=== PATIENT | female | born 1950 | race Caucasian/White ===

== ENCOUNTER 2017-11-19 19:15 | Inpatient (IN) | payer BC, OTHER ==
[2017-11-19] MEDS ORDERED: SODIUM CHLORIDE 1,000 ML IV SCH (19:30)
--- NOTE | 2017-11-19 19:42 | PDOC ---
Attending Attestation - Resident Resident Name: Manuel Moya - ED Attending Attestation I have performed the following: I have examined & evaluated the patient, The case was reviewed & discussed with the resident, I agree w/resident's findings & plan, Exceptions are as noted - Physicial Exam PE: 11/19/17 20:41 Vitals: Triage Vital signs reviewed General Appearance: Agonal respirations minimally responsive Head: Atraumatic, Neck: Supple;No Nucal rigidity Chest Wall: Nontender Cardiac: Regular rate and rhythym, no murmurs, no rubs, no gallops, Lungs: Clear to auscultation bilateral, crackles at bases Abdomen: Soft, non distended, normal bowel sounds, non tender to palpation Extremities: Full range of motion to all extremities, no cyanosis, clubbing, or edema Skin: Cool to touch Neuro: Not moving extremities - Critical Care Time Total Critical Care Time: 30 Critical Care Statement: The care of this patient involved high complexity decision making to prevent further life threatening deterioration of the patient 's condition and/or to evaluate & treat vital organ system(s) failure or risk of failure. - Medical Decision Making 11/19/17 19:41 67 years old no known past medical history presented to the emergency department agonal respirations dilated pupils not following commands not responding to pain in upper and lower extremities. Patient placed on nonrebreather sent to CAT scan for stat head CT Reevaluation status post being on nonrebreather patient moving arm his legs no obvious gross hemorrhage on CT had final report pending Bipap ordered ABG ordered blood cultures ordered IV fluids ordered. 11/19/17 20:41 <Amos Segura - Last Filed: 11/19/17 20:40> - HPI HPI: 11/19/17 20:47 Patient is a 67 year old female with no significant past medical history who was brought by EMS to the ED with complaints of general weakness. As per EMS patient was responsive and ambulatory on site,stating that she had no trouble breathing, but was feeling increasingly weak. EMS reports patient was able to walk on site, and states she was able to climb onto stretcher. PRASHANT reports they were not able to oxygen levels over 79 with the respiratory mask on, stated he thought his equipment was malfunctioning. As per patient's daughter, patient experienced 1 episode of bloody black tar like diarrhea this afternoon. As per EMS, patient has been experiencing upper respiratory infection since wednesday and has been on Azithromycin. Denies chest pain, SOB. Denies nausea, vomiting. Denies fevers, chills. Denies contact with sick individuals, out of state travel. Denies any other symptoms. Allergies: None Social history: Lives at home with . No smoking. No alcohol. No illicit drugs. Surgical history: None PMD: Not on staff - Medical Decision Making 11/19/17 20:47 Documentation prepared by Antonio Meneses, acting as regional medical director for Marleny Payne MD/DO. <Antonio Meneses - Last Filed: 11/19/17 20:47> - Resident Resident Name: Manuel Moya - ED Attending Attestation I have performed the following: I have examined & evaluated the patient, The case was reviewed & discussed with the resident, I agree w/resident's findings & plan - HPI HPI: 11/19/17 22:57 Pt comes with multiple complaints. SOB, hypoxia, melena, weakness, AMS. Head CT normal. CXR demonstrates effusions. Pt is afebrile. Guaiac positive - Physicial Exam PE: 11/20/17 03:15 Agree with resident exam. Pt is vastly more alert now that she is on BiPAP. Pt has fatigue, but she states that she has no specific body pains. - Medical Decision Making 11/20/17 03:19 Pt's labs drawn multiple times. Lab unable to run tubes, and get results, as she has thick blood. Hospitalist refusing to take the patient, as only ABG results and guaiac returned. Serial ABGs demonstrated imrpovement. Respiratory techs at bedside regularly, checking patient and tweaking her BiPAP settings. ICU PROCESS ASSISTANT accepted the patient. Finally once leukemia results retuned on CBC smear, and initial partial chem returned, pt was accepted by the hospitalist team. Pt vastly improved when she was leaving the ER; Alert and awake and speaking to us through her BiPAP mask. Stable for admission and transfer to ICU <Marleny Payne - Last Filed: 11/20/17 03:23>
--- NOTE | 2017-11-19 19:56 | PDOC ---
History of Present Illness <Marleny Payne - Last Filed: 11/20/17 00:58> - History of Present Illness Initial Comments: 11/19/17 20:27 Ms. Hernandez is a 67 yo female w/ no pmh who presents via EMS as she was unresponsive at home. Per family she has had productive cough since . She had initially seen her PCP and received an Augmentin Rx on 11/09/17 after she began coughing up blood but discontinued it and began Erythromycin when she started having black spots on her arms. She finished her Erythromycin Rx today. Per family she has become increasingly lethargic and today had an episode of bloody, black/sticky diarrhea. Per EMS she was responsive when they arrived but quickly became unresponsive and was barely reacting on arrival to ED. Allergies:NKDA <Manuel Moya - Last Filed: 11/20/17 06:46> - General Stated Complaint: WEAKNESS Time Seen by Provider: 11/19/17 19:26 Past History <Marleny Payne - Last Filed: 11/20/17 00:58> <Manuel Moya - Last Filed: 11/20/17 06:46> - Past Medical History Allergies/Adverse Reactions: Allergies Allergy/AdvReac Type Severity Reaction Status Date / Time No Known Allergies Allergy Verified 11/19/17 20:31 Review of Systems - Review of Systems Comments:: 11/19/17 20:31 Unable to obtain <Maneul Moya - Last Filed: 11/20/17 06:46> *Physical Exam - Vital Signs Last Vital Signs Temp Pulse Resp BP Pulse Ox 99.3 F 112 H 28 H 96/70 100 11/19/17 19:15 11/19/17 19:15 11/19/17 19:15 11/19/17 19:15 11/20/17 00:11 <Marleny Payne - Last Filed: 11/20/17 00:58> - Physical Exam Comments: 11/19/17 23:08 GENERAL: +Patient minimally responsive to voice at presentation. Semi- purposeful movements appreciated. HEAD: No signs of trauma, normocephalic, atraumatic EYES: +Pupils minimally responsive. Sclera anicteric, conjunctiva clear ENT: Auricles normal inspection, nares patent, oropharynx clear without exudates. Moist mucosa NECK: Supple, no lymphadenopathy, JVD, or masses LUNGS: +Unable to properly assess due to patient cooperation HEART: Regular rate and rhythm, normal S1 and S2, no murmurs, rubs or gallops, peripheral pulses normal and equal bilaterally. ABDOMEN: Soft, nontender, normoactive bowel sounds. No guarding, no rebound. No masses EXTREMITIES: Normal inspection, Normal range of motion, no edema. No clubbing or cyanosis. NEUROLOGICAL: Cranial nerves II through XII grossly intact. Normal speech, normal gait, no focal sensorimotor deficits SKIN: +Patient skin appears mottled. Patient cold to the touch. <Manuel Moya - Last Filed: 11/20/17 06:46> ED Treatment Course - LABORATORY CBC & Chemistry Diagram: 11/19/17 20:37 11/20/17 00:26 - ADDITIONAL ORDERS Additional order review: Laboratory Results 11/20/17 11/19/17 11/19/17 00:26 23:00 22:42 PT with INR INR Puncture Site Right brachial ABG pH 7.34 L D ABG pCO2 at Pt Temp 22.7 L ABG pO2 at Pt Temp 252.0 H* ABG HCO3 12.0 L* ABG O2 Sat (Measured) 99.6 H* ABG O2 Content 9.6 L* ABG Base Excess -12.5 L* Jese Test Positive VBG pH POC VBG pCO2 POC VBG pO2 Mixed VBG HCO3 Carboxyhemoglobin Methemoglobin O2 Delivery Device Bipap Oxygen Flow Rate 100% Vent Mode S/t Vent Rate 14 Pressure Support Vent 14/61 Sodium 126 L Potassium 5.0 Chloride 100 Carbon Dioxide Anion Gap BUN Creatinine Creat Clearance w eGFR Random Glucose Lactic Acid Calcium Total Bilirubin 0.9 AST 180 H ALT Alkaline Phosphatase 32 L Creatine Kinase 166 Creatine Kinase Index 4.7 CK-MB (CK-2) 7.923 H Troponin I 1.49 H* B-Natriuretic Peptide Total Protein Albumin Triglycerides Cholesterol Total LDL Cholesterol HDL Cholesterol Urine Color Urine Appearance Urine pH Ur Specific [place] Urine Protein Urine Glucose (UA) Urine Ketones Urine Blood Urine Nitrite Urine Bilirubin Urine Urobilinogen Ur Leukocyte Esterase Urine WBC (Auto) Urine RBC (Auto) Ur Epithelial Cells Urine Bacteria Stool Occult Blood Blood Type Antibody Screen Prewarmed Antibody Srcn Antibody Identification Antigen Identification 11/19/17 11/19/17 11/19/17 22:00 21:18 20:40 PT with INR INR Puncture Site Right radial ABG pH 7.18 L* D ABG pCO2 at Pt Temp 23.3 L D ABG pO2 at Pt Temp 230.0 H* ABG HCO3 8.4 L* ABG O2 Sat (Measured) 99.3 H ABG O2 Content 10.0 L ABG Base Excess -18.4 L* Jese Test Positive VBG pH POC VBG pCO2 POC VBG pO2 Mixed VBG HCO3 Carboxyhemoglobin 0.9 Methemoglobin 1.1 O2 Delivery Device Bipap Oxygen Flow Rate 100% Vent Mode S/t Vent Rate 14 Pressure Support Vent 14/6 Sodium Potassium Chloride Carbon Dioxide Anion Gap BUN Creatinine Creat Clearance w eGFR Random Glucose Lactic Acid Calcium Total Bilirubin AST ALT Alkaline Phosphatase Creatine Kinase Creatine Kinase Index CK-MB (CK-2) Troponin I B-Natriuretic Peptide Total Protein Albumin Triglycerides Cholesterol Total LDL Cholesterol HDL Cholesterol Urine Color Yellow Urine Appearance Clear Urine pH 5.5 Ur Specific [place] 1.025 Urine Protein 1+ H Urine Glucose (UA) Negative Urine Ketones Negative Urine Blood 1+ H Urine Nitrite Negative Urine Bilirubin 1+ H Urine Urobilinogen 1.0 Ur Leukocyte Esterase Negative Urine WBC (Auto) 1 Urine RBC (Auto) 6 Ur Epithelial Cells Rare Urine Bacteria Rare Stool Occult Blood Blood Type Cancelled Antibody Screen Prewarmed Antibody Srcn Antibody Identification Antigen Identification 11/19/17 11/19/17 11/19/17 20:37 20:37 20:08 PT with INR INR Puncture Site ABG pH ABG pCO2 at Pt Temp ABG pO2 at Pt Temp ABG HCO3 ABG O2 Sat (Measured) ABG O2 Content ABG Base Excess Jese Test VBG pH 6.80 L* POC VBG pCO2 53.5 H POC VBG pO2 54.0 H Mixed VBG HCO3 8.4 L* Carboxyhemoglobin Methemoglobin O2 Delivery Device Oxygen Flow Rate Vent Mode Vent Rate Pressure Support Vent Sodium Cancelled Potassium Cancelled Chloride Cancelled Carbon Dioxide Cancelled Anion Gap Cancelled BUN Cancelled Creatinine Cancelled Creat Clearance w eGFR Cancelled Random Glucose Cancelled Lactic Acid Calcium Cancelled Total Bilirubin Cancelled AST Cancelled ALT Cancelled Alkaline Phosphatase Cancelled Creatine Kinase Cancelled Creatine Kinase Index CK-MB (CK-2) Troponin I Cancelled B-Natriuretic Peptide Total Protein Cancelled Albumin Cancelled Triglycerides Cholesterol Total LDL Cholesterol HDL Cholesterol Urine Color Urine Appearance Urine pH Ur Specific [place] Urine Protein Urine Glucose (UA) Urine Ketones Urine Blood Urine Nitrite Urine Bilirubin Urine Urobilinogen Ur Leukocyte Esterase Urine WBC (Auto) Urine RBC (Auto) Ur Epithelial Cells Urine Bacteria Stool Occult Blood Positive Blood Type Antibody Screen Prewarmed Antibody Srcn Antibody Identification Antigen Identification 11/19/17 11/19/17 11/19/17 19:47 19:47 19:47 PT with INR INR Puncture Site ABG pH ABG pCO2 at Pt Temp ABG pO2 at Pt Temp ABG HCO3 ABG O2 Sat (Measured) ABG O2 Content ABG Base Excess Jese Test VBG pH POC VBG pCO2 POC VBG pO2 Mixed VBG HCO3 Carboxyhemoglobin Methemoglobin O2 Delivery Device Oxygen Flow Rate Vent Mode Vent Rate Pressure Support Vent Sodium Potassium Chloride Carbon Dioxide Anion Gap BUN Creatinine Creat Clearance w eGFR Random Glucose Lactic Acid Cancelled Calcium Total Bilirubin AST ALT Alkaline Phosphatase Creatine Kinase Creatine Kinase Index CK-MB (CK-2) Troponin I Cancelled B-Natriuretic Peptide Cancelled Total Protein Albumin Triglycerides Cholesterol Total LDL Cholesterol HDL Cholesterol Urine Color Urine Appearance Urine pH Ur Specific [place] Urine Protein Urine Glucose (UA) Urine Ketones Urine Blood Urine Nitrite Urine Bilirubin Urine Urobilinogen Ur Leukocyte Esterase Urine WBC (Auto) Urine RBC (Auto) Ur Epithelial Cells Urine Bacteria Stool Occult Blood Blood Type Antibody Screen Prewarmed Antibody Srcn Antibody Identification Antigen Identification 11/19/17 11/19/17 11/19/17 19:47 19:47 19:47 PT with INR Cancelled INR Cancelled Puncture Site ABG pH ABG pCO2 at Pt Temp ABG pO2 at Pt Temp ABG HCO3 ABG O2 Sat (Measured) ABG O2 Content ABG Base Excess Jese Test VBG pH POC VBG pCO2 POC VBG pO2 Mixed VBG HCO3 Carboxyhemoglobin Methemoglobin O2 Delivery Device Oxygen Flow Rate Vent Mode Vent Rate Pressure Support Vent Sodium Cancelled Potassium Cancelled Chloride Cancelled Carbon Dioxide Cancelled Anion Gap Cancelled BUN Cancelled Creatinine Cancelled Creat Clearance w eGFR Cancelled Random Glucose Cancelled Lactic Acid Calcium Cancelled Total Bilirubin Cancelled AST Cancelled ALT Cancelled Alkaline Phosphatase Cancelled Creatine Kinase Cancelled Creatine Kinase Index CK-MB (CK-2) Troponin I Cancelled B-Natriuretic Peptide Total Protein Cancelled Albumin Cancelled Triglycerides Cancelled Cholesterol Cancelled Total LDL Cholesterol Cancelled HDL Cholesterol Cancelled Urine Color Urine Appearance Urine pH Ur Specific [place] Urine Protein Urine Glucose (UA) Urine Ketones Urine Blood Urine Nitrite Urine Bilirubin Urine Urobilinogen Ur Leukocyte Esterase Urine WBC (Auto) Urine RBC (Auto) Ur Epithelial Cells Urine Bacteria Stool Occult Blood Blood Type A POSITIVE Antibody Screen Positive H Prewarmed Antibody Srcn Negative Antibody Identification Caiha Antigen Identification No Result Required. 11/19/17 19:37 PT with INR INR Puncture Site Left radial ABG pH 7.01 L* ABG pCO2 at Pt Temp 31.6 L ABG pO2 at Pt Temp 119.0 H ABG HCO3 7.7 L* ABG O2 Sat (Measured) 96.1 ABG O2 Content 9.3 L* ABG Base Excess -21.5 L* Jese Test Positive VBG pH POC VBG pCO2 POC VBG pO2 Mixed VBG HCO3 Carboxyhemoglobin 0.7 Methemoglobin 0.5 O2 Delivery Device Nrm Oxygen Flow Rate 100% Vent Mode Vent Rate Pressure Support Vent Sodium Potassium Chloride Carbon Dioxide Anion Gap BUN Creatinine Creat Clearance w eGFR Random Glucose Lactic Acid Calcium Total Bilirubin AST ALT Alkaline Phosphatase Creatine Kinase Creatine Kinase Index CK-MB (CK-2) Troponin I B-Natriuretic Peptide Total Protein Albumin Triglycerides Cholesterol Total LDL Cholesterol HDL Cholesterol Urine Color Urine Appearance Urine pH Ur Specific [place] Urine Protein Urine Glucose (UA) Urine Ketones Urine Blood Urine Nitrite Urine Bilirubin Urine Urobilinogen Ur Leukocyte Esterase Urine WBC (Auto) Urine RBC (Auto) Ur Epithelial Cells Urine Bacteria Stool Occult Blood Blood Type Antibody Screen Prewarmed Antibody Srcn Antibody Identification Antigen Identification 11/19/17 11/19/17 20:37 19:47 RBC 2.25 L Cancelled MCV 92.6 Cancelled MCHC 30.3 L Cancelled RDW 23.9 H Cancelled MPV 7.5 Cancelled Neutrophils % Cancelled Lymphocytes % Cancelled Monocytes % Cancelled Eosinophils % Cancelled Basophils % Cancelled - Medications Given in the ED: ED Medications Discontinued Medications Generic Name Dose Route Start Last Admin Trade Name Freq PRN Reason Stop Dose Admin Piperacillin Sod/Tazobactam Sod 3.375 gm 11/19/17 20:15 11/19/17 20:16 Zosyn 3.375gm Ivpb (Pre-Docked) IVPB 11/19/17 20:16 3.375 gm ONCE ONE Administration Protocol <Marleny Payne - Last Filed: 11/20/17 00:58> - LABORATORY CBC & Chemistry Diagram: 11/20/17 03:25 11/20/17 03:25 <Manuel Moya - Last Filed: 11/20/17 06:46> Medical Decision Making - Critical Care Time Total Critical Care Time (minutes): 60 Critical Care Statement: The care of this patient involved high complexity decision making to prevent further life threatening deterioration of the patient 's condition and/or to evaluate & treat vital organ system(s) failure or risk of failure. - Medical Decision Making 11/19/17 23:10 Ms. Hernandez is a 67 yo female w/ no pmh who presents w/ symptoms concerning for sepsis vs. hypoxemia vs. acute intracranial event. Initial SpO2 was 74%. Head CT ordered as patient's pupils minimally responsive however no acute bleed noted. Patient became more responsive when placed on high-flow O2. Sepsis workup started. Patient's oxygen saturation initially improved to 80's on non- rebreather. Patient noted to have pneumonia per CXR. Patient given fluids and Zosyn. Patient placed on bipap and oxygenation increased to 100%. Patient able to converse and respond to commands while on bipap. 11/20/17 01:01 Hospital lab unable to process values for various tests after multiple re- draws. 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 Hematology paged several times for further evaluation. 11/20/17 01:30 Patient admitted to ICU for further care. <Manuel Moya - Last Filed: 11/20/17 06:46> *DC/Admit/Observation/Transfer <Marleny Payne - Last Filed: 11/20/17 00:58> - Discharge Dispostion Admit: Yes <Manuel Moya - Last Filed: 11/20/17 06:46> Diagnosis at time of Disposition: Rectal bleed, History of melena, Elevated troponin Leukemia Qualifiers: Leukemia type: unspecified Leukemia Active/Remission status: without remission Qualified Code(s): C95.90 - Leukemia, unspecified not having achieved remission Anemia Qualifiers: Anemia type: unspecified type Qualified Code(s): D64.9 - Anemia, unspecified Respiratory failure Qualifiers: Chronicity: unspecified Respiratory failure complication: unspecified whether with hypoxia or hypercapnia Qualified Code(s): J96.90 - Respiratory failure, unspecified, unspecified whether with hypoxia or hypercapnia - Discharge Dispostion Condition at time of disposition: Poor
[2017-11-19 20:03] LABS: ARTERIAL BLD GAS O2 SATURATION 96.1 % (90-98.9); ARTERIAL BLOOD GAS PCO2 31.6 mmHg (35-45); CARBOXYHEMOGLOBIN 0.7 gm% (0.5-2.0)
[2017-11-19 20:06] LABS: ALLENS TEST POSITIVE
[2017-11-19 20:13] LABS: ARTERIAL BLOOD GAS BASE EXCESS -21.5 meq/l (-2-2); ARTERIAL BLOOD GAS pH 7.01 (7.35-7.45)
[2017-11-19] MEDS ORDERED: PIPERACILLIN/TAZOB 3.375 GM/50 ML PRE-DOCKED IVPB ONE (20:15)
[2017-11-19 20:55] LABS: ARTERIAL BLD GAS O2 SATURATION 99.3 % (90-98.9); ARTERIAL BLOOD GAS PCO2 23.3 mmHg (35-45); ARTERIAL BLOOD GAS pH 7.18 (7.35-7.45); CARBOXYHEMOGLOBIN 0.9 gm% (0.5-2.0)
[2017-11-19 21:16] LABS: ALLENS TEST POSITIVE
[2017-11-19 21:35] LABS: VENOUS PC02 53.5 mmHg (38-52)
[2017-11-19 21:40] LABS: VENOUS PH 6.8 (7.32-7.42)
[2017-11-19 21:42] LABS: ARTERIAL BLOOD GAS BASE EXCESS -18.4 meq/l (-2-2)
[2017-11-19 22:42] LABS: PH,URINE 5.5 (5.0-8.0); URINE APPEARANCE CLEAR; URINE BILIRUBIN 1+ (NEGATIVE); URINE BLOOD 1+ (NEGATIVE); URINE COLOR YELLOW; URINE GLUCOSE (UA) NEGATIVE (NEGATIVE); URINE KETONE NEGATIVE (NEGATIVE); URINE LEUK ESTERASE NEGATIVE (NEGATIVE); URINE NITRITE NEGATIVE (NEGATIVE)
[2017-11-19 22:55] LABS: ARTERIAL BLD GAS O2 SATURATION 99.6 % (90-98.9); ARTERIAL BLOOD GAS PCO2 22.7 mmHg (35-45); ARTERIAL BLOOD GAS pH 7.34 (7.35-7.45)
[2017-11-19 23:05] LABS: URINE PROTEIN 1+ (NEGATIVE)
[2017-11-19 23:44] LABS: ALLENS TEST POSITIVE
[2017-11-19 23:58] LABS: ARTERIAL BLOOD GAS BASE EXCESS -12.5 meq/l (-2-2)
[2017-11-20 00:07] LABS: RBC 2.25 M/mm3 (3.60-5.2)
[2017-11-20 00:08] LABS: HEMATOCRIT 20.8 % (32.4-45.2); MCH 28.1 pg (25.7-33.7); MCHC 30.3 g/dl (32.0-36.0); MEAN CELL VOLUME 92.6 fl (80-96); MEAN PLT VOLUME 7.5 fl (7.5-11.1); PLATELET COUNT 63 K/MM3 (134-434); RDW 23.9 % (11.6-15.6)
[2017-11-20 00:09] LABS: HEMOGLOBIN 6.3 GM/dL (10.7-15.3); WHITE BLOOD COUNT 48.9 K/mm3 (4.0-10.0)
[2017-11-20 00:22] LABS: EPI CELLS RARE /HPF (FEW); URINE BACTERIA RARE /hpf (NONE SEEN)
--- NOTE | 2017-11-20 00:25 | PDOC ---
*Physical Exam - Vital Signs Last Vital Signs Temp Pulse Resp BP Pulse Ox 99.3 F 112 H 28 H 96/70 100 11/19/17 19:15 11/19/17 19:15 11/19/17 19:15 11/19/17 19:15 11/20/17 00:11 ED Treatment Course - LABORATORY CBC & Chemistry Diagram: 11/19/17 20:37 11/20/17 00:26 - ADDITIONAL ORDERS Additional order review: Laboratory Results 11/19/17 11/19/17 11/19/17 22:42 22:00 21:18 PT with INR INR Puncture Site Right brachial ABG pH 7.34 L D ABG pCO2 at Pt Temp 22.7 L ABG pO2 at Pt Temp 252.0 H* ABG HCO3 12.0 L* ABG O2 Sat (Measured) 99.6 H* ABG O2 Content 9.6 L* ABG Base Excess -12.5 L* Jese Test Positive VBG pH POC VBG pCO2 POC VBG pO2 Mixed VBG HCO3 Carboxyhemoglobin Methemoglobin O2 Delivery Device Bipap Oxygen Flow Rate 100% Vent Mode S/t Vent Rate 14 Pressure Support Vent 14/61 Sodium Potassium Chloride Carbon Dioxide Anion Gap BUN Creatinine Creat Clearance w eGFR Random Glucose Lactic Acid Calcium Total Bilirubin AST ALT Alkaline Phosphatase Creatine Kinase Troponin I B-Natriuretic Peptide Total Protein Albumin Triglycerides Cholesterol Total LDL Cholesterol HDL Cholesterol Urine Color Yellow Urine Appearance Clear Urine pH 5.5 Ur Specific [place] 1.025 Urine Protein 1+ H Urine Glucose (UA) Negative Urine Ketones Negative Urine Blood 1+ H Urine Nitrite Negative Urine Bilirubin 1+ H Urine Urobilinogen 1.0 Ur Leukocyte Esterase Negative Stool Occult Blood Blood Type Cancelled Antibody Screen Prewarmed Antibody Srcn Antibody Identification Antigen Identification 11/19/17 11/19/17 11/19/17 20:40 20:37 20:37 PT with INR INR Puncture Site Right radial ABG pH 7.18 L* D ABG pCO2 at Pt Temp 23.3 L D ABG pO2 at Pt Temp 230.0 H* ABG HCO3 8.4 L* ABG O2 Sat (Measured) 99.3 H ABG O2 Content 10.0 L ABG Base Excess -18.4 L* Jese Test Positive VBG pH 6.80 L* POC VBG pCO2 53.5 H POC VBG pO2 54.0 H Mixed VBG HCO3 8.4 L* Carboxyhemoglobin 0.9 Methemoglobin 1.1 O2 Delivery Device Bipap Oxygen Flow Rate 100% Vent Mode S/t Vent Rate 14 Pressure Support Vent 14/6 Sodium Cancelled Potassium Cancelled Chloride Cancelled Carbon Dioxide Cancelled Anion Gap Cancelled BUN Cancelled Creatinine Cancelled Creat Clearance w eGFR Cancelled Random Glucose Cancelled Lactic Acid Calcium Cancelled Total Bilirubin Cancelled AST Cancelled ALT Cancelled Alkaline Phosphatase Cancelled Creatine Kinase Cancelled Troponin I Cancelled B-Natriuretic Peptide Total Protein Cancelled Albumin Cancelled Triglycerides Cholesterol Total LDL Cholesterol HDL Cholesterol Urine Color Urine Appearance Urine pH Ur Specific [place] Urine Protein Urine Glucose (UA) Urine Ketones Urine Blood Urine Nitrite Urine Bilirubin Urine Urobilinogen Ur Leukocyte Esterase Stool Occult Blood Blood Type Antibody Screen Prewarmed Antibody Srcn Antibody Identification Antigen Identification 11/19/17 11/19/17 11/19/17 20:08 19:47 19:47 PT with INR INR Puncture Site ABG pH ABG pCO2 at Pt Temp ABG pO2 at Pt Temp ABG HCO3 ABG O2 Sat (Measured) ABG O2 Content ABG Base Excess Jese Test VBG pH POC VBG pCO2 POC VBG pO2 Mixed VBG HCO3 Carboxyhemoglobin Methemoglobin O2 Delivery Device Oxygen Flow Rate Vent Mode Vent Rate Pressure Support Vent Sodium Potassium Chloride Carbon Dioxide Anion Gap BUN Creatinine Creat Clearance w eGFR Random Glucose Lactic Acid Cancelled Calcium Total Bilirubin AST ALT Alkaline Phosphatase Creatine Kinase Troponin I B-Natriuretic Peptide Cancelled Total Protein Albumin Triglycerides Cholesterol Total LDL Cholesterol HDL Cholesterol Urine Color Urine Appearance Urine pH Ur Specific [place] Urine Protein Urine Glucose (UA) Urine Ketones Urine Blood Urine Nitrite Urine Bilirubin Urine Urobilinogen Ur Leukocyte Esterase Stool Occult Blood Positive Blood Type Antibody Screen Prewarmed Antibody Srcn Antibody Identification Antigen Identification 11/19/17 11/19/17 11/19/17 19:47 19:47 19:47 PT with INR INR Puncture Site ABG pH ABG pCO2 at Pt Temp ABG pO2 at Pt Temp ABG HCO3 ABG O2 Sat (Measured) ABG O2 Content ABG Base Excess Jese Test VBG pH POC VBG pCO2 POC VBG pO2 Mixed VBG HCO3 Carboxyhemoglobin Methemoglobin O2 Delivery Device Oxygen Flow Rate Vent Mode Vent Rate Pressure Support Vent Sodium Cancelled Potassium Cancelled Chloride Cancelled Carbon Dioxide Cancelled Anion Gap Cancelled BUN Cancelled Creatinine Cancelled Creat Clearance w eGFR Cancelled Random Glucose Cancelled Lactic Acid Calcium Cancelled Total Bilirubin Cancelled AST Cancelled ALT Cancelled Alkaline Phosphatase Cancelled Creatine Kinase Cancelled Troponin I Cancelled Cancelled B-Natriuretic Peptide Total Protein Cancelled Albumin Cancelled Triglycerides Cancelled Cholesterol Cancelled Total LDL Cholesterol Cancelled HDL Cholesterol Cancelled Urine Color Urine Appearance Urine pH Ur Specific [place] Urine Protein Urine Glucose (UA) Urine Ketones Urine Blood Urine Nitrite Urine Bilirubin Urine Urobilinogen Ur Leukocyte Esterase Stool Occult Blood Blood Type A POSITIVE Antibody Screen Positive H Prewarmed Antibody Srcn Negative Antibody Identification Caiha Antigen Identification No Result Required. 11/19/17 11/19/17 19:47 19:37 PT with INR Cancelled INR Cancelled Puncture Site Left radial ABG pH 7.01 L* ABG pCO2 at Pt Temp 31.6 L ABG pO2 at Pt Temp 119.0 H ABG HCO3 7.7 L* ABG O2 Sat (Measured) 96.1 ABG O2 Content 9.3 L* ABG Base Excess -21.5 L* Jese Test Positive VBG pH POC VBG pCO2 POC VBG pO2 Mixed VBG HCO3 Carboxyhemoglobin 0.7 Methemoglobin 0.5 O2 Delivery Device Nrm Oxygen Flow Rate 100% Vent Mode Vent Rate Pressure Support Vent Sodium Potassium Chloride Carbon Dioxide Anion Gap BUN Creatinine Creat Clearance w eGFR Random Glucose Lactic Acid Calcium Total Bilirubin AST ALT Alkaline Phosphatase Creatine Kinase Troponin I B-Natriuretic Peptide Total Protein Albumin Triglycerides Cholesterol Total LDL Cholesterol HDL Cholesterol Urine Color Urine Appearance Urine pH Ur Specific [place] Urine Protein Urine Glucose (UA) Urine Ketones Urine Blood Urine Nitrite Urine Bilirubin Urine Urobilinogen Ur Leukocyte Esterase Stool Occult Blood Blood Type Antibody Screen Prewarmed Antibody Srcn Antibody Identification Antigen Identification 11/19/17 11/19/17 20:37 19:47 RBC 2.25 L Cancelled MCV 92.6 Cancelled MCHC 30.3 L Cancelled RDW 23.9 H Cancelled MPV 7.5 Cancelled Neutrophils % Cancelled Lymphocytes % Cancelled Monocytes % Cancelled Eosinophils % Cancelled Basophils % Cancelled - Medications Given in the ED: ED Medications Discontinued Medications Generic Name Dose Route Start Last Admin Trade Name Freq PRN Reason Stop Dose Admin Piperacillin Sod/Tazobactam Sod 3.375 gm 11/19/17 20:15 11/19/17 20:16 Zosyn 3.375gm Ivpb (Pre-Docked) IVPB 11/19/17 20:16 3.375 gm ONCE ONE Administration Protocol Medical Decision Making - Medical Decision Making 11/20/17 00:19 We marguerite 3-4 sets of labs on patient and her blood is so thick it clots immediately and the lab cannot run it. We sent labs in a green top tube which is treated with heparin, yet lab is unable to get accurate labs. Under the microscope pt appears to have a leukemia. Pt also has severe WBC elevation 26 on one WBC run, and 40s on 2 others. Pt has HCT 20s on all 3 CBC samples. Pt is guaiac positive. 11/20/17 00:59 Pt came to the ER with AMS. With O2 sat 74-84%. She had an initial pH of 7.0 that improved to 7.18 then up to 7.34 on BiPAP. Pt is more alert in the ER, but she appears exhausted. She is pale and weak. 11/20/17 01:05 We paged [facility]. for Hem onc 3x with no response. We finally ordered a consult for tomorrow. Pt will be admitted to the ICU; [facility] accepted the case and hospitalist agreed to admit the patient. *DC/Admit/Observation/Transfer Diagnosis at time of Disposition: Leukemia, Anemia, Rectal bleed, History of melena, Respiratory failure, Elevated troponin - Discharge Dispostion Condition at time of disposition: Poor - Referrals - Patient Instructions - Post Discharge Activity
[2017-11-20 00:45] LABS: ALK PHOS 32 U/L (45-117); BILIRUBIN,TOTAL 0.9 mg/dL (0.2-1.0); CHLORIDE 100 mmol/L (98-107); SGOT/AST 180 U/L (15-37); SODIUM 126 mmol/L (136-145)
[2017-11-20 00:58] LABS: ANION GAP 17 (8-16); BLOOD UREA NITROGEN 51 mg/dL (7-18); CALCIUM 7.6 mg/dL (8.5-10.1)
[2017-11-20 01:00] LABS: CREATININE 2.7 mg/dL (0.55-1.02); GLUCOSE,RANDOM 108 mg/dL (74-106); SGPT/ALT 79 U/L (12-78)
[2017-11-20 01:01] LABS: CO2 9 mmol/L (21-32)
[2017-11-20 01:02] LABS: CHOLESTEROL < 50 mg/dL (50-200); HDL CHOLESTEROL 7 mg/dl (29-89); LDL CHOLESTEROL (ONLY SJRH) 14 mg/dL (5-100); TRIGLYCERIDES 43 mg/dL (35-160)
[2017-11-20 02:24] LABS: TOT PROT 17.2 g/dl (6.4-8.2)
[2017-11-20] MEDS ORDERED: SODIUM CHLORIDE 1,000 ML IV SCH (02:35)
--- NOTE | 2017-11-20 02:37 | HP ---
CHIEF COMPLAINT: Lethargic and unresponsive PCP: Not on Staff HISTORY OF PRESENT ILLNESS: Unable to obtain information due to patients medical condition Patient is a 67 year old female with no PMHx who was BIBEMS after the family called 911 due to patient being lethargic and unresponsive at home this evening. According to the family, patient had symptoms of upper respiratory infection including a cough. She went to her primary care physician who initially treated her with Augmentin on 11/09/17 but patient started feeling really sick and developed a rash on her arms and legs as well as coughing up blood. Patient returned to her PCP and switched her to a Z-Pack, which she completed today, but patient progressively became lethargic and eventually unresponsive with increasing bleeding from her nose and arms, as per familyhy, which prompted this hospital visit. ER course was notable for: (1) Zosyn given (2) (3) Recent Travel: None PAST MEDICAL HISTORY: None PAST SURGICAL HISTORY: None Social History: Unable to obtain due to patients medical condition Family History: Unable to obtain due to patients medical condition Allergies: No Known Allergies Allergy (Verified 11/19/17 20:31) HOME MEDICATIONS: None REVIEW OF SYSTEMS Unable to obtain due to patients medical condition PHYSICAL EXAMINATION Vital Signs - 24 hr 11/19/17 11/20/17 11/20/17 19:15 00:11 01:24 Temperature 99.3 F 98.6 F Pulse Rate 112 H Pulse Rate [ 96 H Apical] Respiratory 28 H 30 H Rate Blood Pressure 96/70 Blood Pressure 114/50 [Left Arm] O2 Sat by Pulse 84 L 100 100 Oximetry (%) GENERAL: Lethargic and mihnimaly responsive HEAD: Normal with no signs of trauma. EYES: Pupils nonreactive to light bilaterally with conjunctival pallor. EARS, NOSE, THROAT: Unable to assess due to patients being uncooperative due to medical condition NECK: Supple without lymphadenopathy, JVD, or masses. LUNGS: Breath sounds equal, clear to auscultation bilaterally. No wheezes, and no crackles. No accessory muscle use. HEART: Tachycardic with regular rhythm, normal S1 and S2 without murmur, rub or gallop. ABDOMEN: Soft, nontender, not distended, normoactive bowel sounds, no guarding, no rebound, no masses. MUSCULOSKELETAL: Unable to assess due to patients being uncooperative due to medical condi UPPER EXTREMITIES: 2+ pulses, cold, well-perfused. No cyanosis. No clubbing. No peripheral edema. LOWER EXTREMITIES: 2+ pulses, cold, well-perfused. No calf tenderness. No peripheral edema. NEUROLOGICAL: Unable to assess due to patients being uncooperative due to medical condi PSYCHIATRIC: unresponsive SKIN: mottling on bilateral arms and legs Laboratory Results - last 24 hr 11/19/17 11/19/17 11/19/17 19:37 19:47 19:47 WBC Cancelled Corrected WBC (auto) Cancelled RBC Cancelled Hgb Cancelled Hct Cancelled MCV Cancelled MCH Cancelled MCHC Cancelled RDW Cancelled Plt Count Cancelled MPV Cancelled Absolute Neuts (auto) Cancelled Absolute Lymphs (auto) Cancelled Absolute Monos (auto) Cancelled Absolute Eos (auto) Cancelled Absolute Basos (auto) Cancelled Add Manual Diff Cancelled Neutrophils % Cancelled Neutrophils % (Manual) Lymphocytes % Cancelled Lymphocytes % (Manual) Monocytes % Cancelled Monocytes % (Manual) Eosinophils % Cancelled Basophils % Cancelled Nucleated RBC % Cancelled Other Cell Type Platelet Estimate Cancelled Platelet Comment Cancelled Normal RBC Morphology Cancelled PT with INR Cancelled INR Cancelled Puncture Site Left radial ABG pH 7.01 L* ABG pCO2 at Pt Temp 31.6 L ABG pO2 at Pt Temp 119.0 H ABG HCO3 7.7 L* ABG O2 Sat (Measured) 96.1 ABG O2 Content 9.3 L* ABG Base Excess -21.5 L* Jese Test Positive VBG pH POC VBG pCO2 POC VBG pO2 Mixed VBG HCO3 Carboxyhemoglobin 0.7 Methemoglobin 0.5 O2 Delivery Device Nrm Oxygen Flow Rate 100% Vent Mode Vent Rate Pressure Support Vent Sodium Potassium Chloride Carbon Dioxide Anion Gap BUN Creatinine Creat Clearance w eGFR Random Glucose Lactic Acid Calcium Total Bilirubin AST ALT Alkaline Phosphatase Creatine Kinase Creatine Kinase Index CK-MB (CK-2) Troponin I B-Natriuretic Peptide Total Protein Albumin Triglycerides Cholesterol Total LDL Cholesterol HDL Cholesterol Urine Color Urine Appearance Urine pH Ur Specific [place] Urine Protein Urine Glucose (UA) Urine Ketones Urine Blood Urine Nitrite Urine Bilirubin Urine Urobilinogen Ur Leukocyte Esterase Urine WBC (Auto) Urine RBC (Auto) Ur Epithelial Cells Urine Bacteria Stool Occult Blood Blood Type Antibody Screen Prewarmed Antibody Srcn Antibody Identification Antigen Identification 11/19/17 11/19/17 11/19/17 19:47 19:47 19:47 WBC Corrected WBC (auto) RBC Hgb Hct MCV MCH MCHC RDW Plt Count MPV Absolute Neuts (auto) Absolute Lymphs (auto) Absolute Monos (auto) Absolute Eos (auto) Absolute Basos (auto) Add Manual Diff Neutrophils % Neutrophils % (Manual) Lymphocytes % Lymphocytes % (Manual) Monocytes % Monocytes % (Manual) Eosinophils % Basophils % Nucleated RBC % Other Cell Type Platelet Estimate Platelet Comment Normal RBC Morphology PT with INR INR Puncture Site ABG pH ABG pCO2 at Pt Temp ABG pO2 at Pt Temp ABG HCO3 ABG O2 Sat (Measured) ABG O2 Content ABG Base Excess Jese Test VBG pH POC VBG pCO2 POC VBG pO2 Mixed VBG HCO3 Carboxyhemoglobin Methemoglobin O2 Delivery Device Oxygen Flow Rate Vent Mode Vent Rate Pressure Support Vent Sodium Cancelled Potassium Cancelled Chloride Cancelled Carbon Dioxide Cancelled Anion Gap Cancelled BUN Cancelled Creatinine Cancelled Creat Clearance w eGFR Cancelled Random Glucose Cancelled Lactic Acid Calcium Cancelled Total Bilirubin Cancelled AST Cancelled ALT Cancelled Alkaline Phosphatase Cancelled Creatine Kinase Cancelled Creatine Kinase Index CK-MB (CK-2) Troponin I Cancelled Cancelled B-Natriuretic Peptide Total Protein Cancelled Albumin Cancelled Triglycerides Cancelled Cholesterol Cancelled Total LDL Cholesterol Cancelled HDL Cholesterol Cancelled Urine Color Urine Appearance Urine pH Ur Specific [place] Urine Protein Urine Glucose (UA) Urine Ketones Urine Blood Urine Nitrite Urine Bilirubin Urine Urobilinogen Ur Leukocyte Esterase Urine WBC (Auto) Urine RBC (Auto) Ur Epithelial Cells Urine Bacteria Stool Occult Blood Blood Type A POSITIVE Antibody Screen Positive H Prewarmed Antibody Srcn Negative Antibody Identification Caiha Antigen Identification No Result Required. 11/19/17 11/19/17 11/19/17 19:47 19:47 20:08 WBC Corrected WBC (auto) RBC Hgb Hct MCV MCH MCHC RDW Plt Count MPV Absolute Neuts (auto) Absolute Lymphs (auto) Absolute Monos (auto) Absolute Eos (auto) Absolute Basos (auto) Add Manual Diff Neutrophils % Neutrophils % (Manual) Lymphocytes % Lymphocytes % (Manual) Monocytes % Monocytes % (Manual) Eosinophils % Basophils % Nucleated RBC % Other Cell Type Platelet Estimate Platelet Comment Normal RBC Morphology PT with INR INR Puncture Site ABG pH ABG pCO2 at Pt Temp ABG pO2 at Pt Temp ABG HCO3 ABG O2 Sat (Measured) ABG O2 Content ABG Base Excess Jese Test VBG pH POC VBG pCO2 POC VBG pO2 Mixed VBG HCO3 Carboxyhemoglobin Methemoglobin O2 Delivery Device Oxygen Flow Rate Vent Mode Vent Rate Pressure Support Vent Sodium Potassium Chloride Carbon Dioxide Anion Gap BUN Creatinine Creat Clearance w eGFR Random Glucose Lactic Acid Cancelled Calcium Total Bilirubin AST ALT Alkaline Phosphatase Creatine Kinase Creatine Kinase Index CK-MB (CK-2) Troponin I B-Natriuretic Peptide Cancelled Total Protein Albumin Triglycerides Cholesterol Total LDL Cholesterol HDL Cholesterol Urine Color Urine Appearance Urine pH Ur Specific [place] Urine Protein Urine Glucose (UA) Urine Ketones Urine Blood Urine Nitrite Urine Bilirubin Urine Urobilinogen Ur Leukocyte Esterase Urine WBC (Auto) Urine RBC (Auto) Ur Epithelial Cells Urine Bacteria Stool Occult Blood Positive Blood Type Antibody Screen Prewarmed Antibody Srcn Antibody Identification Antigen Identification 11/19/17 11/19/17 11/19/17 20:37 20:37 20:37 WBC 48.9 H* Corrected WBC (auto) RBC 2.25 L Hgb 6.3 L* Hct 20.8 L MCV 92.6 MCH 28.1 MCHC 30.3 L RDW 23.9 H Plt Count 63 L MPV 7.5 Absolute Neuts (auto) Absolute Lymphs (auto) Absolute Monos (auto) Absolute Eos (auto) Absolute Basos (auto) Add Manual Diff Neutrophils % Neutrophils % (Manual) 29.0 L Lymphocytes % Lymphocytes % (Manual) 19.0 Monocytes % Monocytes % (Manual) 3 L Eosinophils % Basophils % Nucleated RBC % Other Cell Type 49 Platelet Estimate Platelet Comment Normal RBC Morphology PT with INR INR Puncture Site ABG pH ABG pCO2 at Pt Temp ABG pO2 at Pt Temp ABG HCO3 ABG O2 Sat (Measured) ABG O2 Content ABG Base Excess Jese Test VBG pH 6.80 L* POC VBG pCO2 53.5 H POC VBG pO2 54.0 H Mixed VBG HCO3 8.4 L* Carboxyhemoglobin Methemoglobin O2 Delivery Device Oxygen Flow Rate Vent Mode Vent Rate Pressure Support Vent Sodium Cancelled Potassium Cancelled Chloride Cancelled Carbon Dioxide Cancelled Anion Gap Cancelled BUN Cancelled Creatinine Cancelled Creat Clearance w eGFR Cancelled Random Glucose Cancelled Lactic Acid Calcium Cancelled Total Bilirubin Cancelled AST Cancelled ALT Cancelled Alkaline Phosphatase Cancelled Creatine Kinase Cancelled Creatine Kinase Index CK-MB (CK-2) Troponin I Cancelled B-Natriuretic Peptide Total Protein Cancelled Albumin Cancelled Triglycerides Cholesterol Total LDL Cholesterol HDL Cholesterol Urine Color Urine Appearance Urine pH Ur Specific [place] Urine Protein Urine Glucose (UA) Urine Ketones Urine Blood Urine Nitrite Urine Bilirubin Urine Urobilinogen Ur Leukocyte Esterase Urine WBC (Auto) Urine RBC (Auto) Ur Epithelial Cells Urine Bacteria Stool Occult Blood Blood Type Antibody Screen Prewarmed Antibody Srcn Antibody Identification Antigen Identification 11/19/17 11/19/17 11/19/17 20:40 21:18 22:00 WBC Corrected WBC (auto) RBC Hgb Hct MCV MCH MCHC RDW Plt Count MPV Absolute Neuts (auto) Absolute Lymphs (auto) Absolute Monos (auto) Absolute Eos (auto) Absolute Basos (auto) Add Manual Diff Neutrophils % Neutrophils % (Manual) Lymphocytes % Lymphocytes % (Manual) Monocytes % Monocytes % (Manual) Eosinophils % Basophils % Nucleated RBC % Other Cell Type Platelet Estimate Platelet Comment Normal RBC Morphology PT with INR INR Puncture Site Right radial ABG pH 7.18 L* D ABG pCO2 at Pt Temp 23.3 L D ABG pO2 at Pt Temp 230.0 H* ABG HCO3 8.4 L* ABG O2 Sat (Measured) 99.3 H ABG O2 Content 10.0 L ABG Base Excess -18.4 L* Jese Test Positive VBG pH POC VBG pCO2 POC VBG pO2 Mixed VBG HCO3 Carboxyhemoglobin 0.9 Methemoglobin 1.1 O2 Delivery Device Bipap Oxygen Flow Rate 100% Vent Mode S/t Vent Rate 14 Pressure Support Vent 14/6 Sodium Potassium Chloride Carbon Dioxide Anion Gap BUN Creatinine Creat Clearance w eGFR Random Glucose Lactic Acid Calcium Total Bilirubin AST ALT Alkaline Phosphatase Creatine Kinase Creatine Kinase Index CK-MB (CK-2) Troponin I B-Natriuretic Peptide Total Protein Albumin Triglycerides Cholesterol Total LDL Cholesterol HDL Cholesterol Urine Color Yellow Urine Appearance Clear Urine pH 5.5 Ur Specific [place] 1.025 Urine Protein 1+ H Urine Glucose (UA) Negative Urine Ketones Negative Urine Blood 1+ H Urine Nitrite Negative Urine Bilirubin 1+ H Urine Urobilinogen 1.0 Ur Leukocyte Esterase Negative Urine WBC (Auto) 1 Urine RBC (Auto) 6 Ur Epithelial Cells Rare Urine Bacteria Rare Stool Occult Blood Blood Type Cancelled Antibody Screen Prewarmed Antibody Srcn Antibody Identification Antigen Identification 11/19/17 11/19/17 11/20/17 22:42 23:00 00:26 WBC Corrected WBC (auto) RBC Hgb Hct MCV MCH MCHC RDW Plt Count MPV Absolute Neuts (auto) Absolute Lymphs (auto) Absolute Monos (auto) Absolute Eos (auto) Absolute Basos (auto) Add Manual Diff Neutrophils % Neutrophils % (Manual) Lymphocytes % Lymphocytes % (Manual) Monocytes % Monocytes % (Manual) Eosinophils % Basophils % Nucleated RBC % Other Cell Type Platelet Estimate Platelet Comment Normal RBC Morphology PT with INR INR Puncture Site Right brachial ABG pH 7.34 L D ABG pCO2 at Pt Temp 22.7 L ABG pO2 at Pt Temp 252.0 H* ABG HCO3 12.0 L* ABG O2 Sat (Measured) 99.6 H* ABG O2 Content 9.6 L* ABG Base Excess -12.5 L* Jese Test Positive VBG pH POC VBG pCO2 POC VBG pO2 Mixed VBG HCO3 Carboxyhemoglobin Methemoglobin O2 Delivery Device Bipap Oxygen Flow Rate 100% Vent Mode S/t Vent Rate 14 Pressure Support Vent 14/61 Sodium 126 L Potassium 5.0 Chloride 100 Carbon Dioxide 9 L Anion Gap 17 H BUN 51 H Creatinine 2.7 H Creat Clearance w eGFR 17.69 Random Glucose 108 H Lactic Acid Calcium 7.6 L Total Bilirubin 0.9 AST 180 H ALT 79 H Alkaline Phosphatase 32 L Creatine Kinase 166 Creatine Kinase Index 4.7 CK-MB (CK-2) 7.923 H Troponin I 1.49 H* B-Natriuretic Peptide Total Protein 17.2 H Albumin 1.0 L Triglycerides 43 Cholesterol < 50 L* Total LDL Cholesterol 14 HDL Cholesterol 7 L Urine Color Urine Appearance Urine pH Ur Specific [place] Urine Protein Urine Glucose (UA) Urine Ketones Urine Blood Urine Nitrite Urine Bilirubin Urine Urobilinogen Ur Leukocyte Esterase Urine WBC (Auto) Urine RBC (Auto) Ur Epithelial Cells Urine Bacteria Stool Occult Blood Blood Type Antibody Screen Prewarmed Antibody Srcn Antibody Identification Antigen Identification IMAGES Chest X-Ray (09/19/18): Reticular opacities throughout both lungs are suggestive of pulmonary vascular congestion. Questionably bilateral very small pleural effusions with bibasilar subsegmental atelecatasis. No definite airspace consolidation. Head CT (09/19/18): No acute pathology ASSESSMENT/PLAN: Patient is a 67 year old female who presented for lethargy and was found to have AMS with thrombocytopenia and [place]. Patient admitted to ICU for further monitoring and management Altered Mental Status with Acute Hypoxic respiratory failure -Possibly secondary to Sepsis. Tachycardic, leukocytosis >40 -Zosyn given in ED. -Blood culture sent -Patient placed on BIPAP with improvement of 02 saturation -Head CT negative for acute pathology -ABG revealed metabolic acidosis with labs showing high anion gap -ICU admission for continuous monitoring -Continue IV fluids -Continue oxygen to maintain >95% Thrombocytopenia with Acute Anemia -Likely secondary to underlining undiagnosed leukemia, rule out GI bleed. Patient's blood draws continue to coagulate. -Platelets 63 and hgb 6.3 -Type and screen ordered -PRBC's ordered -Platelets ordered -According to EM staff, blood smear revealed myelytic cells with granules, suspicious for PML -Continue to monitor CBC -Hematology consult placed Hyponatremia -Boluses of IV NS, cannot correct more than 10 within 24 hours -Urine electrolytes ordered -Kidney and bladder Ultrasound -Continue to monitor BMP Q4H -Renally dose medications and avoid nephrotoxic medications High Anion Gap with Metabolic Acidosis -Possibly due to Uremia and [place] -Consider Bicarb drip if no improvement and determine underlying etiology -Continue to monitor BMP Q4H Elevated Troponins -Likely secondary to demand ischemia and [place] -Creatinine of 2.7 -Urine electrolytes ordered -kidney and bladder U/S -Renally dose medications and avoid nephrotoxic medications Elevated LFT's -Likely secondary to possible sepsis -Continue to trend F/E/N -IV NS @75mls/hr -Electrolytes wnl -NPO Prophylaxis -Moderate risk. SCD's for DVT prophylaxis -Will need Protonix if patient remains intubated Disposition -DNR -Patient will require ICU observation with Hematology consult. Will need minimum of 3 nights Visit type - Emergency Visit Emergency Visit: Yes ED Registration Date: 11/20/17 Care time: The patient presented to the Emergency Department on the above date and was hospitalized for further evaluation of their emergent condition. - New Patient This patient is new to me today: Yes Date on this admission: 11/20/17 - Critical Care Critical Care patient: Yes Total Critical Care Time (in minutes): 45 Critical Care Statement: The care of this patient involved high complexity decision making to prevent further life threatening deterioration of the patient 's condition and/or to evaluate & treat vital organ system(s) failure or risk of failure.
[2017-11-20] MEDS ORDERED: VASOPRESSIN 20 UNITS/ML VIAL IV ONE (03:32)
[2017-11-20] MEDS ORDERED: VANCOMYCIN 1,000 MG in DEXTROSE 5%-WATER - 250 ML IVPB ONE (03:45)
[2017-11-20 03:48] LABS: HEMATOCRIT 16.5 % (32.4-45.2); MCHC 28.9 g/dl (32.0-36.0); MEAN CELL VOLUME 96.8 fl (80-96); MEAN PLT VOLUME 7.6 fl (7.5-11.1); PLATELET COUNT 52 K/MM3 (134-434); RBC 1.71 M/mm3 (3.60-5.2); RDW 24.4 % (11.6-15.6)
--- NOTE | 2017-11-20 04:10 | CONSULT ---
Consult Consult Specialty:: PULM/CCM Referred by:: Dr. Jem Randhawa Reason for Consultation:: MSOF - History of Present Illness Chief Complaint: Gen Malaise / Dizzy History of Present Illness: Mrs. Hernandez is a 67 y/o woman w/ no PMHx BIBA for melena & being lethargic at home this evening. A/p family, the pt originally had symptoms of upper respiratory infection including a cough. On 11/09/17 the pt went to her primary care physician who started the pt on Augmentin. By November 14 the pt began feeling extreme malaise, "coughing up blood" and "developed a rash" on her arms and legs. Pt returned to her PCP @ that time & was prescribed a Z-Pack, which she completed on November 19, 2017 & then began presenting w/ melena as well as progressive lethargy & thus her family dialed 911. In the ED the pt is noted guaiac positive & lethargic w/ resp insufficiency requiring Bi-Level, WBC in the 40's, HCT 20s, PLTS in the 60's, & renal Fail. The ED reports unable to obtain complete lab studies w/ multiple rounds of labs drawn, sent, & clotted upon arrival to lab. Pt admitted to the ICU in critical condition w/ Resp Fail & an acute acute promyelocytic leukemia w/ DIC +/- DIC vs DIT vs TTP vs ITP. HEME Consult in progress. - History Source History Provided By: Patient, Family Member, Medical Record Limitations to Obtaining History: Clinical Condition - Past Medical History ACID DUMPER: No: Seizure Cardio/Vascular: No: CAD, CHF, HTN Pulmonary: No: Asthma Gastrointestinal: No: GERD, GI Bleed, Hemorrhoids Hepatobiliary: No: Cirrhosis Renal/: No: Renal Failure Reproductive: No: Fibroids Heme/Onc: No: Anemia, Cancer Psych: No: Addictions Rheumatology: No: Rheumatoid Arthritis Endocrine: No: Diabetes Mellitus - Alcohol/Substance Use Hx Alcohol Use: No - Smoking History Smoking history: Never smoked Have you smoked in the past 12 months: No - Social History History of Recent Travel: No Home Medications - Allergies Allergies/Adverse Reactions: Allergies Allergy/AdvReac Type Severity Reaction Status Date / Time No Known Allergies Allergy Verified 11/19/17 20:31 Family Disease History - Family Disease History Family History: Unable to Obtain (AMS) Review of Systems Unable to obtain ROS, reason: AMS Physical Exam Vital Signs: Vital Signs Temperature 98.6 F 11/20/17 01:24 Pulse Rate 96 H 11/20/17 01:24 Respiratory Rate 30 H 11/20/17 01:24 Blood Pressure 114/50 11/20/17 01:24 O2 Sat by Pulse Oximetry (%) 100 11/20/17 02:45 Intake & Output 11/17/17 11/18/17 11/19/17 11/20/17 23:59 23:59 23:59 23:59 Weight 79.379 kg 81.647 kg Constitutional: Yes: Ashen, Pallor Eyes: Yes: Other (Dilated Pupils) HENT: Yes: WNL, Epistaxis Neck: Yes: WNL, Supple, Trachea Midline Cardiovascular: Yes: WNL, Regular Rate and Rhythm Respiratory: Yes: Diminished, On BiPap Gastrointestinal: Yes: WNL, Normal Bowel Sounds, Soft, Abdomen, Obese ...Rectal Exam: Yes: Deferred Renal/: Yes: Oliguria Breast(s): Yes: WNL Musculoskeletal: Yes: WNL Extremities: Yes: WNL Edema: No Peripheral Pulses WNL: Yes Integumentary: Yes: Other (Purpura --> Arms & Legs) Psychiatric: Yes: Alert Labs: CBC, BMP 11/20/17 03:25 11/20/17 03:25 Abnormal Lab Results 11/19/17 11/19/17 11/19/17 19:37 19:47 20:37 WBC 48.9 H* RBC 2.25 L Hgb 6.3 L* Hct 20.8 L MCV MCHC 30.3 L RDW 23.9 H Plt Count 63 L Neutrophils % (Manual) 29.0 L Monocytes % (Manual) 3 L Fibrinogen ABG pH 7.01 L* ABG pCO2 at Pt Temp 31.6 L ABG pO2 at Pt Temp 119.0 H ABG HCO3 7.7 L* ABG O2 Sat (Measured) ABG O2 Content 9.3 L* ABG Base Excess -21.5 L* VBG pH POC VBG pCO2 POC VBG pO2 Mixed VBG HCO3 Sodium Potassium Carbon Dioxide Anion Gap BUN Creatinine Random Glucose Lactic Acid Calcium Total Bilirubin AST ALT Alkaline Phosphatase CK-MB (CK-2) Troponin I Total Protein Albumin Cholesterol HDL Cholesterol Urine Protein Urine Blood Urine Bilirubin Antibody Screen Positive H Crossmatch See Detail 11/19/17 11/19/17 11/19/17 20:37 20:40 22:00 WBC RBC Hgb Hct MCV MCHC RDW Plt Count Neutrophils % (Manual) Monocytes % (Manual) Fibrinogen ABG pH 7.18 L* D ABG pCO2 at Pt Temp 23.3 L D ABG pO2 at Pt Temp 230.0 H* ABG HCO3 8.4 L* ABG O2 Sat (Measured) 99.3 H ABG O2 Content 10.0 L ABG Base Excess -18.4 L* VBG pH 6.80 L* POC VBG pCO2 53.5 H POC VBG pO2 54.0 H Mixed VBG HCO3 8.4 L* Sodium Potassium Carbon Dioxide Anion Gap BUN Creatinine Random Glucose Lactic Acid Calcium Total Bilirubin AST ALT Alkaline Phosphatase CK-MB (CK-2) Troponin I Total Protein Albumin Cholesterol HDL Cholesterol Urine Protein 1+ H Urine Blood 1+ H Urine Bilirubin 1+ H Antibody Screen Crossmatch 11/19/17 11/19/17 11/20/17 22:42 23:00 00:26 WBC RBC Hgb Hct MCV MCHC RDW Plt Count Neutrophils % (Manual) Monocytes % (Manual) Fibrinogen ABG pH 7.34 L D ABG pCO2 at Pt Temp 22.7 L ABG pO2 at Pt Temp 252.0 H* ABG HCO3 12.0 L* ABG O2 Sat (Measured) 99.6 H* ABG O2 Content 9.6 L* ABG Base Excess -12.5 L* VBG pH POC VBG pCO2 POC VBG pO2 Mixed VBG HCO3 Sodium 126 L Potassium Carbon Dioxide 9 L Anion Gap 17 H BUN 51 H Creatinine 2.7 H Random Glucose 108 H Lactic Acid Calcium 7.6 L Total Bilirubin AST 180 H ALT 79 H Alkaline Phosphatase 32 L CK-MB (CK-2) 7.923 H Troponin I 1.49 H* Total Protein 17.2 H Albumin 1.0 L Cholesterol < 50 L* HDL Cholesterol 7 L Urine Protein Urine Blood Urine Bilirubin Antibody Screen Crossmatch 11/20/17 11/20/17 11/20/17 03:25 03:25 03:25 WBC 61.5 H* RBC 1.71 L D Hgb 4.8 L* D Hct 16.5 L D MCV 96.8 H MCHC 28.9 L RDW 24.4 H Plt Count 52 L Neutrophils % (Manual) Monocytes % (Manual) Fibrinogen < 100.0 L* ABG pH ABG pCO2 at Pt Temp ABG pO2 at Pt Temp ABG HCO3 ABG O2 Sat (Measured) ABG O2 Content ABG Base Excess VBG pH POC VBG pCO2 POC VBG pO2 Mixed VBG HCO3 Sodium Potassium Carbon Dioxide Anion Gap BUN Creatinine Random Glucose Lactic Acid 17.4 H* Calcium Total Bilirubin AST ALT Alkaline Phosphatase CK-MB (CK-2) Troponin I Total Protein Albumin Cholesterol HDL Cholesterol Urine Protein Urine Blood Urine Bilirubin Antibody Screen Crossmatch 11/20/17 11/20/17 03:25 03:25 WBC RBC Hgb Hct MCV MCHC RDW Plt Count Neutrophils % (Manual) Monocytes % (Manual) Fibrinogen ABG pH ABG pCO2 at Pt Temp ABG pO2 at Pt Temp ABG HCO3 ABG O2 Sat (Measured) ABG O2 Content ABG Base Excess VBG pH POC VBG pCO2 POC VBG pO2 Mixed VBG HCO3 Sodium 127 L Potassium 6.8 H* Carbon Dioxide 10 L Anion Gap 19 H BUN 56 H Creatinine 3.2 H Random Glucose 415 H* Lactic Acid Calcium 7.2 L Total Bilirubin 1.2 H D AST 356 H D ALT 155 H D Alkaline Phosphatase 39 L CK-MB (CK-2) Troponin I Total Protein 13.3 H D Albumin 0.8 L Cholesterol HDL Cholesterol Urine Protein Urine Blood Urine Bilirubin Antibody Screen Crossmatch See Detail Imaging - Results Chest X-ray: Image Reviewed ( CXR 11/19: Reticular opacities throughout both lungs are suggestive of pulmonary vascular congestion. Question bilateral very small pleural effusions with bibasilar subsegmental atelectasis. No definite airspace consolidation.) Cat Scan: Report [facility]ed [facility]: No acute intracranial hemorrhage, mass effect, midline shift or hydrocephalus. No compelling evidence of acute transcortical infarction at this time. MRI is more sensitive in detecting acute infarctions. Small nonspecific fluid level in the left maxillary sinus. Please correlate clinically for acute sinusitis.) EKG: Report Reviewed (NONE) Problem List - Problems (1) Leukemia Code(s): C95.90 - LEUKEMIA, UNSPECIFIED NOT HAVING ACHIEVED REMISSION Qualifiers: Leukemia type: unspecified Leukemia Active/Remission status: without remission Qualified Code(s): C95.90 - Leukemia, unspecified not having achieved remission (2) Anemia Code(s): D64.9 - ANEMIA, UNSPECIFIED Qualifiers: Anemia type: unspecified type Qualified Code(s): D64.9 - Anemia, unspecified (3) Respiratory failure Code(s): J96.90 - RESPIRATORY FAILURE, UNSP, UNSP W HYPOXIA OR HYPERCAPNIA Qualifiers: Chronicity: unspecified Respiratory failure complication: unspecified whether with hypoxia or hypercapnia Qualified Code(s): J96.90 - Respiratory failure, unspecified, unspecified whether with hypoxia or hypercapnia (4) History of melena Code(s): Z87.19 - PERSONAL HISTORY OF OTHER DISEASES OF THE DIGESTIVE SYSTEM Assessment/Plan A/P: -Upon arrival to the ICU pt's resp status deteriorated requiring endotracheal intubation. -The pt quickly developed cardiac Arrest & ACLS was initiated. -The pt was resuscitated & required multiple blood products. -S/p Arrest the pt was moribund on Max Pressors. -Family moved pt to DNR -Smear most c/w acute acute promyelocytic leukemia w/ DIC. -Pt peacefully @ 0540HRS. DGL, ACNP-BC [facility] ICU PULM / CCM [id number]
[2017-11-20 04:14] LABS: ADD RBC MORPHOLOGY YES
[2017-11-20 04:15] LABS: HEMOGLOBIN 4.8 GM/dL (10.7-15.3); WHITE BLOOD COUNT 61.5 K/mm3 (4.0-10.0)
[2017-11-20 04:17] LABS: ANION GAP 19 (8-16); BILIRUBIN,TOTAL 1.2 mg/dL (0.2-1.0); BLOOD UREA NITROGEN 56 mg/dL (7-18); CALCIUM 7.2 mg/dL (8.5-10.1); CHLORIDE 98 mmol/L (98-107); CO2 10 mmol/L (21-32); CREATININE 3.2 mg/dL (0.55-1.02); SGOT/AST 356 U/L (15-37); SGPT/ALT 155 U/L (12-78); SODIUM 127 mmol/L (136-145)
[2017-11-20 04:26] LABS: ALK PHOS 39 U/L (45-117)
[2017-11-20 04:28] LABS: ALBUMIN 0.8 g/dl (3.4-5.0); TOT PROT 13.3 g/dl (6.4-8.2)
[2017-11-20 04:30] LABS: GLUCOSE,RANDOM 415 mg/dL (74-106); POTASSIUM 6.8 mmol/L (3.5-5.1)
[2017-11-20 04:37] VITALS: BP 70/40; PULSE 66; TEMP 97; BMI 30.9
[2017-11-20 04:40] LABS: D-DIMER 325 ng/ml (0-500)
[2017-11-20 04:51] LABS: FIBRINOGEN < 100.0 mg/dL (238-498)
[2017-11-20] MEDS ORDERED: SODIUM BICARBONATE 8.4% 50 MEQ/50 ML DISP.SYRIN IVPUSH ONE (04:55)
[2017-11-20] MEDS ORDERED: CALCIUM GLUCONATE 10% - 1,000 MG/10 ML VIAL IVPB ONE (04:56)
[2017-11-20] MEDS ORDERED: INSULIN REGULAR HUMAN 100 UNITS/ML *VIAL IVPUSH ONE (04:56)
[2017-11-20] MEDS ORDERED: DEXTROSE 50%-WATER - 25 GM/50 ML VIAL IVPUSH ONE (04:57)
--- NOTE | 2017-11-20 05:10 | RAPID ---
Physical Examination Vital Signs: Vital Signs Temperature 97 F L 11/20/17 04:12 Pulse Rate 66 11/20/17 04:12 Respiratory Rate 30 H 11/20/17 04:12 Blood Pressure 70/40 11/20/17 04:12 O2 Sat by Pulse Oximetry (%) 100 11/20/17 04:12 Labs: CBC, BMP 11/20/17 03:25 11/20/17 03:25 Rapid Response - Rapid Response Assessment: This is a Code 99 summary, please see code sheet on physical chart for complete details Patient was being wheeled up to the ICU from the ED and Patient lost pulses and went into cardiac arrest. Code 99 called at 02:48 for bed 3. Patient noted to be pulseless and ICU team immediately started the CPR. When we arrived patient was found to have PEA but with no pulse. ACLS protocol was started and patient was given epinephrine every 3-5 minutes, Sodium bicarb x2, Dextrose x3. IV Normal saline wide open and PRBC's were also started. Patient was in persistent VTACH both with and without pulse and was shocked multiple times. CPR /ACLS continued and Amiodarone was given as well, which resolved the VTACH. In the meantime patient was intubated and ICU COMMERCIAL LIGHT FIXTURE ASSEMBLER placed a femoral line. Code lasted 19 minutes with ROSC. Patient had persistent hypotension and was started on Levophed, with max dose without any improvements and then Vasopressin and dopamine was started. Her Heart rate remained tachycardic in the 130's-180's. Orders placed for repeat CBC, CMP, DIC panel, LDH, Haptoglobin, EKG, Mg, Phos, Lactic acid, Troponins, CXR Hematolgist/Oncologist came to the hospital urgently to assess patient. Peripheral smears and clinical picture is highly suspicious for Acute promyelocytic Leukemia and is his number one differential diagnosis. He then requested for Cryoprecipitate to be ordered Patients prognosis was explained in full detail to the family at bedside and they decided for DNR Patient became pulseless and went into cardiac arrest. Time of 05:40. Patient's family at bedside. Restaurant Team Member contacted and denied case Critical Care Total Critical Care Time (in minutes): 45 Critical Care Statement: The care of this patient involved high complexity decision making to prevent further life threatening deterioration of the patient 's condition and/or to evaluate & treat vital organ system(s) failure or risk of failure.
--- NOTE | 2017-11-20 05:31 | PROC ---
Intubation - Intubation Reason for Intubation: Respiratory Failure Time of Intubation: 02:00 Intubation Method: orotracheal Blade used: Mac Tube Size (cm): 7.5 Tube position @ lip (cm): 23 Tube position confirmed by: Direct visualization, CO2 detector, Chest x-ray, Breath sounds Breath Sounds after Intubation: equal Post Intubation Xray: Yes Remarks: GRADE III View, Required experienced ICU ruching machine operator.
--- NOTE | 2017-11-20 05:33 | PROC ---
Central Line Insertion Indication: CVP Monitoring, Poor Venous Access, Vasopressor Risks and Benefits Explained: Yes Consent on Chart: Yes Central Line: Triple Lumen Catheter Sterile Technique: Yes Ultrasound Guided Assistance: Yes Position: Right Femoral Sterile Dressing Applied: Yes
[2017-11-20 05:41] LABS: LDH 2250 U/L (84-246)
--- NOTE | 2017-11-20 06:41 | CONSULT ---
Consult Consult Specialty:: Hematology-Oncology Referred by:: Zia Vizcarra Reason for Consultation:: Leukocytosis , anemia, thrombocytopenia , coagulopathy - History of Present Illness Chief Complaint: lethargy , became unresaponsive 11-19-17 History of Present Illness: 67 y/o F with unremarkable PMH , as per family, was in good health till [place] then began to feel tired. She then developed a cough and Rx w Augmentin by PCP ; she developed an itchy rash on arms and blood in sputum ; antibiotic changed to azithromycin. She continued to feel ill , increasing sluggishness , developed bruising ; she became very lethargic yesterday and unresponsive and brought to ER ; family denied any recent fever, chills , sweat .Her CBC showed leukocytosis w predominant cells undefined ,severe anemia and moderate thrombocytopenia. A repeat CBC showed WBC 61.5 H/H =4.8/16.5 Plates 62K ; PT/PTT could not be performed on several tries ; fibrinogen <100 ; chemistries w Creat .7 [id number] ALT 79 T.bili 0.9 T.prot 17.2,then 13.3 ; alb 0.8 ALK 39 lactic acid 17.CXR w reticular opacities /pulm congestion. CT brain neg except for minor fluid level in max. sinus . Pt hypotensive , found to have generalized purpura and mottling of skin ; Rx w empiric ab,s , Tx's of packed red cells.Pt required rapid response , intubated , started on pressors ; cryoprecipitate started . Peripheral smear reviewed - > 50% of the WBC's are large immature cells , many w granules , prominant nuclei . The platelets are low , nucleated RBC's noted; no schistocytes seen (less than 1 every high power field) , some spherocytes noted. - History Source History Provided By: Family Member, Medical Record Limitations to Obtaining History: Intubated - Past Medical History Pulmonary: No: Asthma, Bronchitis, Cancer, COPD, O2 Dependent, Pneumonia, Previously Intubated, Pulmonary Embolus, Pulmonary Fibrosis, Sleep Apnea, Other Hepatobiliary: No: Cirrhosis, Cholelithiasis, Cholecystitis, Choledocholithiasis , Hepatitis A, Hepatitis B, Hepatitis C, Other Renal/: No: Renal Failure, Renal Inusuff, BPH, Cancer, Hematuria, Hemodialysis , Neurogenic Bladder, Renal Calculi, UTI, Other Heme/Onc: No: Anemia, B12 Deficiency, Bleeding Disorder, Cancer, Current Chemotherapy, Current Radiation Therapy, Hemochromatosis, Hypercoaguable State, Myeloproliferative Synd, Sickle Cell Disease, Sickle Cell Trait, Thrombocytopenia, Other Infectious Disease: No: AIDS, C-Diff, Herpes Zoster, HIV, MRSA, STD's, Tuberculosis, VREF, Other Psych: No: Addictions, Anxiety, Bipolar, Depression, Panic, Psychosis, Schizophrenia, Other Musculoskeletal: No: Bursitis, Chronic low back pain, Hemiparesis, Hemiplegia, Osteoarthritis, Paraplegia, Other Rheumatology: No: Rheumatoid Arthritis Endocrine: No: Jose's Disease, [place]'s Disease, Diabetes Insipidus, Diabetes Mellitus, Hyperparathyroidism, Hyperthyroidism, Hypothyroidism, Osteopenia, SIADH, Other - Past Surgical History Past Surgical History: Yes: None - Smoking History Smoking history: Never smoked Have you smoked in the past 12 months: No Home Medications - Allergies Allergies/Adverse Reactions: Allergies Allergy/AdvReac Type Severity Reaction Status Date / Time No Known Allergies Allergy Verified 11/19/17 20:31 Review of Systems Unable to obtain ROS, reason: intubated, unresponsive - Review of Systems HENT: reports: Epistaxis, Other (reported) Gastrointestinal: reports: Melena (reported) Physical Exam Vital Signs: Vital Signs Temperature 97 F L 11/20/17 04:12 Pulse Rate 66 11/20/17 04:12 Respiratory Rate 30 H 11/20/17 04:12 Blood Pressure 70/40 11/20/17 04:12 O2 Sat by Pulse Oximetry (%) 100 11/20/17 04:12 Constitutional: Yes: Ashen, Obese, Pallor, Other (unresponsive) Eyes: Yes: Other (pale conj.) HENT: Yes: Atraumatic, Normocephalic, Other (ETT) Neck: Yes: WNL, Supple, Trachea Midline Cardiovascular: Yes: WNL, Regular Rate and Rhythm Respiratory: Yes: Diminished Gastrointestinal: Yes: Abdomen, Obese (not tense, no fluid wave) Extremities: Yes: Cold, Cool, Cyanosis Edema: No Integumentary: Yes: Bruising, Rash (generalized mottling , purpura) Neurological: Yes: Unresponsive Labs: CBC, BMP 11/20/17 03:25 11/20/17 03:25 Problem List - Problems (1) Anemia Code(s): D64.9 - ANEMIA, UNSPECIFIED Qualifiers: Anemia type: unspecified type Qualified Code(s): D64.9 - Anemia, unspecified (2) Leukemia Code(s): C95.90 - LEUKEMIA, UNSPECIFIED NOT HAVING ACHIEVED REMISSION Qualifiers: Leukemia type: unspecified Leukemia Active/Remission status: without remission Qualified Code(s): C95.90 - Leukemia, unspecified not having achieved remission (3) Consumption coagulopathy Code(s): D65 - DISSEMINATED INTRAVASCULAR COAGULATION Assessment/Plan 67 y/o F with no signif PMH presents with 2-3 week hx of progressive weakness , then symptoms or an URI Rx w Augmentin , ? developed allergic rash , changed to Z-pack , then developed hemoptysis, melena, epistaxis , progressive weakness , lethargy , and unresponsiveness . She presented w leukocytosis , most cells immature , many w granules c/w promyelocytes ; severe anemia without evidence of microangiopathy ; moderate thrombocytopenia ; she had hemodynamic instability requiring intubation, pressors ; evidence of a consumptive coagulopathy w low fibrinogen ,generalized purpura/bruising/mottling, unobtainable PT/PTT ,FDP high; given empiric ab's . The most likely dx was a fulminant presentation of acute leukemia , possibly APML. I examined pt about an hour prior to expiration. Family present at bedside and situation , probability of acute leukemia discussed, as well as the poor prognosis of pts that present with a life threatening coagulopathy , multiorgan damage (lungs/ kidney/liver) .I had proposed immediate transfer to [facility] (leukemia service) but pt too hemodynamically unstable to be transferred , with BP systolic 60-70 on 3 pressors. Pt also may have had septic shock.Pt with family at bedside..
--- NOTE | 2017-11-20 07:16 | PN ---
Teaching Attending Note Name of Resident: Andie Brian ATTENDING PHYSICIAN STATEMENT I saw and evaluated the patient. Chart, data, imaging. I reviewed the resident's note and discussed the case with the resident. I agree with the resident's findings and plan as documented. SUBJECTIVE: 67 y/o F with unremarkable PMH , as per family, was in good health until around [place] then began to feel tired. She then developed a cough and Rx w Augmentin by PCP ; she developed rash and then antibiotic changed to azithromycin. She continued to feel ill , increasing sluggishness , developed bruising ; she became very lethargic one day ago and unresponsive and brought to ER. Found to have severe anemia, thrombocytopenia, high leukocytosis. Diffuculty with blood draws due to persistent clotting. OBJECTIVE: Last Vital Signs Temp Pulse Resp BP Pulse Ox 97 F L 66 30 H 70/40 100 11/20/17 04:12 11/20/17 04:12 11/20/17 04:12 11/20/17 04:12 11/20/17 04:12 general - intubated heent -at, nc, cv - s1+s2+tachycardia chest- b/l air entry sounds abdomen - soft, nt, decreased bs Skin- mottled skin on torso, extremities ASSESSMENT AND PLAN: #67yo woman w/ sudden unset of altered mental status, thrombocytopenia, anemia , leukocytosis. Thought to be possible drug induced microangiopathic hemolytic anemia or TTP at first but no schistocytes found in peripheral blood smear. >50% were immature large WBC. Heme/onc circulation tender contacted and input appreciated. Patient found to have developed cardiac arrest upon arrival to MICU. Underwent ACLS resuscitation 2:45-3:04 am, with ROSC. Subsequently developed Recurrent vtach with preservation of pulse, s/p multiple synchronized shocks. Recieved amiodarone. Subsequently transfused PRBC for severe anemia. Patient subsequently hyponsive requiring 3 pressors, ultimately . Family was present. Case to be presented to medical records library professor.
[2017-11-20] MEDS ORDERED: METRONIDAZOLE 500 MG PREMIXED 500 MG/100 ML MG IVPB SCH (10:00)
[2017-11-20] MEDS ORDERED: CEFEPIME HCL 2 GM VIAL (RESTRICTED TO ID) IVPB SCH (10:00)
[2017-11-20] MEDS ORDERED: MUPIROCIN 2% TOPICAL OINTMENT FOR DECOLONIZATION NS SCH (10:00)
--- NOTE | 2017-11-20 16:51 | EKG ---
Test Reason : Blood Pressure : / mmHG Vent. Rate : 111 BPM Atrial Rate : 111 BPM P-R Int : 180 ms QRS Dur : 094 ms QT Int : 352 ms P-R-T Axes : 070 -06 080 degrees QTc Int : [address] ELEVATION PATTERN IN LEADS V1 AND V2 IS CONSISTENT WITH TYPE 1 BRUGADA SYNDROME ECG ABNORMAL ECG NO PREVIOUS ECGS AVAILABLE Confirmed by DANY SCHMID MD ([id number]) on 11/20/2017 4:51:23 PM Referred By: Confirmed By:DANY SCHMID MD
[2017-11-20] MEDS ORDERED: CHLORHEXIDINE GLUCONATE 4% CLEANSER FOR DECOLONIZATION TP SCH (22:00)
== END 2017-11-20 05:10 | disposition expired | DRG 208 ==
LOC: JER 19:15 → JERBED 11-20 01:08 → UNDOADMIN 11-20 01:15 → JERBED 11-20 01:15 → JICU 11-20 02:30
PROVIDERS: ADMIT Internal Medicine; ATTEND Internal Medicine
PROC: 5A1935Z Respiratory Ventilation, Less than 24 Consecutive Hours (ICD-10-PCS; principal; 2017-11-20)
PROC: 0BH17EZ Insertion of Endotracheal Airway into Trachea, Via Natural or Artificial Opening (ICD-10-PCS; 2017-11-20)
PROC: 5A12012 Performance of Cardiac Output, Single, Manual (ICD-10-PCS; 2017-11-20)
PROC: 05HM33Z Insertion of Infusion Device into Right Internal Jugular Vein, Percutaneous Approach (ICD-10-PCS; 2017-11-20)
DX: J96.01 Acute respiratory failure with hypoxia (principal); D65 Disseminated intravascular coagulation [defibrination syndrome]; N17.9 Acute kidney failure, unspecified; E87.1 Hypo-osmolality and hyponatremia; E87.2 Acidosis; C92.40 Acute promyelocytic leukemia, not having achieved remission; I47.2 Ventricular tachycardia; D69.6 Thrombocytopenia, unspecified; R41.82 Altered mental status, unspecified; D72.829 Elevated white blood cell count, unspecified
CPT/HCPCS: 31500; 36415; 36430; 36600; 70450-TC; 71045-TC; 80053; 80061; 81003; 81015; 82272; 82375; 82550; 82553; 82803; 82962; 83010; 83050; 83605; 83615; 83721; 84484; 85025; 85027; 85379; 85384; 86850; 86870; 86900; 86901; 86902; 86922; 87040; 93005; 93010; 94002; 99283-25; P9038; P9058